=== PATIENT | female | born 1950 | race Caucasian/White ===

== ENCOUNTER 2018-04-23 06:59 | Emergency (ER) | payer MEDICARE ==
[2018-04-23] MEDS ORDERED: Acetaminophen 325 MG TAB ONE (07:16)
[2018-04-23] MEDS ORDERED: Metoprolol Tartrate 5 MG/5 ML VIAL ONE ×3 (07:18→07:47)
[2018-04-23 07:21] LABS: #Basophils 0.1 thou/uL (0.0-0.2); #Eosinphils 0.2 thou/uL (0.0-0.7); #Lymphocytes 2.1 thou/uL (1.20-3.40); #Monocytes 0.7 thou/uL (0.11-0.59); #Neutrophils 14.8 thou/uL (1.40-6.50); %Basophils 0.7 % (0.0-1.0); %Eosinophils 1.2 % (0.0-10.0); %Lymphocytes 11.6 % (21.0-51.0); %Monocytes 3.9 % (0.0-10.0); %Neutrophils 82.6 % (42.0-75.0); Hemoglobin 12.9 g/dL (12.0-16.0); Mean Corpuscular HGB CONC 32.4 g/dL (32.0-36.0); Mean Corpuscular Hemoglobin 26.7 pg (27.0-31.0); Mean Corpuscular Volume 82.5 fL (78.0-98.0); Mean Platelet Volume 6.8 fL (7.4-10.4); Platelet Count 444 thou/uL (130-400); RBC Distribution Width 15.6 % (11.5-14.5); Red Blood Cell (RBC) Count 4.82 mill/uL (4.20-5.40); White Blood Cell (WBC) Count 17.9 thou/uL (4.8-10.8)
[2018-04-23 07:36] LABS: Prothrombin Time 13.7 SEC (12.0-14.7)
[2018-04-23 07:37] LABS: PTT 26.2 SEC (22.9-36.1)
[2018-04-23 07:39] LABS: ALT (SGPT) 11 U/L (8-55); AST (SGOT) 16 U/L (5-34); Albumin 3.6 g/dL (3.4-4.8); Alkaline Phosphatase 178 U/L (40-150); Anion Gap 18 mmol/L (10-20); BUN (Urea Nitrogen) 10 mg/dL (9.8-20.1); Bilirubin, Total 0.8 mg/dL (0.2-1.2); Calc. Creatinine Clearance 0 mL/min (70-130); Calcium 9.4 mg/dL (7.8-10.44); Carbon Dioxide 28 mmol/L (23-31); Chloride 97 mmol/L (98-107); Estimated GFR-MDRD 61; Globulin 2.4 g/dL (2.4-3.5); Glucose 229 mg/dL (80-115); Potassium 4.3 mmol/L (3.5-5.1); Sodium 139 mmol/L (136-145)
[2018-04-23 07:42] LABS: Bicarbonate (HCO3v) 30.3 mmol/L (22.0-29.0); CO2 Tension (PvCO2) 55.7 mmHg (41.0-51.0); Calcium, Ionized 1.09 mmol/L (1.12-1.32); Hemoglobin - Calc 15.3 g/dL (12.0-18.0); O2 Tension (PvO2) 22.8 mmHg (35.0-45.0); Potassium 3.9 mmol/L (3.4-4.7); pH (Venous) 7.343 (7.35-7.45); vO2 Saturation-calc 34.7 % (94-98)
[2018-04-23] MEDS ORDERED: Labetalol HCl 100 MG/20 ML VIAL ONE (07:45)
[2018-04-23 07:55] LABS: D-Dimer Test 3.4 *mcg/mL (0.27-0.43)
[2018-04-23] MEDS ORDERED: Fentanyl 100 MCG/2 ML VIAL ONE (08:18)
--- NOTE | 2018-04-23 08:31 | RAD ---
CHEST ONE VIEW: History: Dyspnea. FINDINGS: Normal cardiac silhouette. The pulmonary vessels are within normal limits. There are diffuse intersti tial opacities with multifocal alveolar infiltrates in the right upper lobe and right lower lobe. Mul tilobar pneumonia cannot be excluded. There is no pneumothorax or osseous abnormality. IMPRESSION: Interstitial and alveolar infiltrates suggesting multilobar pneumonia. POS: [facility]
[2018-04-23] MEDS ORDERED: Iopamidol 370 76% 100 ML VIAL ONE (09:00)
--- NOTE | 2018-04-23 09:49 | CT ---
CT ANGIO CHEST WITH CONTRAST: Date: 04/23/[address] of the chest was done for evaluation of dyspnea and an abnormal chest x-ray. After a bolus of IV contrast, axial slices were acquired, followed by oblique coronal and coronal reconstructions. FINDINGS: There is excellent opacification of pulmonary arteries. There was no evidence of filling defects to s uggest emboli. No sign of aortic dissection or aneurysm. Each pulmonary artery was somewhat generous in size, measuring nearly 2.5 cm in diameter. The heart is enlarged, but there is no sign of pericard ial fluid. There are extensive infiltrates throughout the right lung. The worst are in the right upper lobe, but the other lobes are involved as well. A small to medium sized right pleural effusion is present and a small left pleural effusion is seen. The left lung was relatively clear compared to the right. Ther e are extensive emphysematous changes throughout the lungs bilaterally. There is no sign of mediastinal mass or adenopathy. The slices through the low neck showed no obvious acute change. The last slices of this series suggest that there may be some intrahepatic dilation of the bile duct. Further abdominal scanning is needed to assess this further. Additionally, on the lowest frame of th e scan, there appears to be destruction of a vertebra at this location, approximately T12. Further sc anning of this area is needed to assess it. I would also note that there is a sclerotic lesion in the mid to upper thoracic vertebra that is more indeterminate in nature. IMPRESSION: 1. No evidence of pulmonary embolism. 2. Severe emphysematous changes with significant pulmonary infiltrates in the right lung, worse in t he right upper lobe. A severe pneumonia is diagnosed. 3. Probable intrahepatic ductal dilation of the biliary system. Further abdominal scanning needed to assess this. 4. Apparent destruction of one low thoracic vertebral body, approximately T12. Again, further scanni ng of this area is needed. My suspicion is that scanning of the abdomen will reveal additional pathol ogy. Findings and need for follow-up discussed with Dr. Grigsby at 0856 hours on 04/23/18. Patient has bee n transferred to [facility] and will likely receive further studies there. CODE CR. POS: HOME
== END 2018-04-23 08:54 | disposition short-term general hospital (02) ==
LOC: BURERS 06:59
DX: J18.9 Pneumonia, unspecified organism (principal); I48.91 Unspecified atrial fibrillation; E78.5 Hyperlipidemia, unspecified; I25.2 Old myocardial infarction; I10 Essential (primary) hypertension; Z87.891 Personal history of nicotine dependence; Z79.82 Long term (current) use of aspirin; Z79.899 Other long term (current) drug therapy
CPT/HCPCS: 71045; 71275; 80053; 82330; 82553; 82803; 83605; 83880; 84484; 85025; 85379; 85610; 85730; 87040; 93005; 96365; 96375; 96376; J1956; J3010; J7620